=== PATIENT | male | born 2005 | race Caucasian/White ===

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

== ENCOUNTER 2025-01-24 05:00 | Outpatient (RCR) | payer MEDICAID, SELFPAY | END 2025-02-22 23:59 | disposition home or self-care (01) | LOC: GPT 05:00 | PROVIDERS: Visit Provider Nurse Practitioner | DX: S06.30AD Unspecified focal traumatic brain injury with loss of consciousness status unknown, subsequent encounter (principal); X58.XXXD Exposure to other specified factors, subsequent encounter | CPT/HCPCS: 97110; 97112; 97116; 97530 ==

== ENCOUNTER 2025-01-24 05:00 | Outpatient (RCR) | payer MEDICAID, SELFPAY | END 2025-02-22 23:59 | disposition home or self-care (01) | LOC: GST 05:00 | PROVIDERS: Visit Provider Family Medicine | DX: S06.30AS Unspecified focal traumatic brain injury with loss of consciousness status unknown, sequela (principal); F84.0 Autistic disorder; X58.XXXS Exposure to other specified factors, sequela | CPT/HCPCS: 92507 ==

== ENCOUNTER 2025-01-24 05:00 | Outpatient (RCR) | payer MEDICAID, SELFPAY | END 2025-02-22 23:59 | disposition home or self-care (01) | LOC: GPT 05:00 | PROVIDERS: Visit Provider Podiatrist Foot & Ankle Surgery | DX: Z98.890 Other specified postprocedural states (principal) | CPT/HCPCS: 97110; 97112; 97140 ==

== ENCOUNTER 2025-01-24 07:00 | Outpatient (RCR) | payer MEDICAID, SELFPAY | END 2025-02-22 23:55 | disposition home or self-care (01) | LOC: GPT 07:00 | PROVIDERS: PCP Family Medicine; Visit Provider Family Medicine | DX: S06.30AS Unspecified focal traumatic brain injury with loss of consciousness status unknown, sequela (principal); X58.XXXS Exposure to other specified factors, sequela | CPT/HCPCS: 97110; 97112; 97530 ==

== ENCOUNTER 2025-02-23 05:00 | Outpatient (RCR) | payer MEDICAID, SELFPAY | END 2025-03-25 23:59 | disposition home or self-care (01) | LOC: GPT 05:00 | PROVIDERS: Visit Provider Nurse Practitioner | DX: S06.30AD Unspecified focal traumatic brain injury with loss of consciousness status unknown, subsequent encounter (principal); X58.XXXD Exposure to other specified factors, subsequent encounter | CPT/HCPCS: 97110; 97112; 97530 ==

== ENCOUNTER 2025-02-23 05:00 | Outpatient (RCR) | payer MEDICAID, SELFPAY | END 2025-03-25 23:59 | disposition home or self-care (01) | LOC: GST 05:00 | PROVIDERS: Visit Provider Family Medicine | DX: F84.0 Autistic disorder (principal) | CPT/HCPCS: 92507 ==

== ENCOUNTER 2025-02-23 05:00 | Outpatient (RCR) | payer MEDICAID, SELFPAY | END 2025-03-25 23:59 | disposition home or self-care (01) | LOC: GPT 05:00 | PROVIDERS: Visit Provider Podiatrist Foot & Ankle Surgery | DX: Z98.890 Other specified postprocedural states (principal) | CPT/HCPCS: 97110; 97140 ==

== ENCOUNTER 2025-02-23 06:30 | Outpatient (RCR) | payer MEDICAID, SELFPAY | END 2025-03-25 23:55 | disposition home or self-care (01) | LOC: GPT 06:30 | PROVIDERS: PCP Family Medicine; Visit Provider Family Medicine | DX: S06.30AS Unspecified focal traumatic brain injury with loss of consciousness status unknown, sequela (principal); X58.XXXS Exposure to other specified factors, sequela | CPT/HCPCS: 97110; 97112; 97530 ==

== ENCOUNTER → 2025-03-01 08:02 | Outpatient (BNVA) | payer MEDICAID, SELFPAY | PROVIDERS: Visit Provider Internal Medicine | DX: E06.3 Autoimmune thyroiditis (principal); V89.2XXA Person injured in unspecified motor-vehicle accident, traffic, initial encounter | CPT/HCPCS: 99204 ==

== ENCOUNTER → 2025-03-19 15:42 | Outpatient (BNVA) | payer MEDICAID, SELFPAY | PROVIDERS: Visit Provider Nurse Practitioner Family | DX: R10.9 Unspecified abdominal pain (principal) | CPT/HCPCS: 81000 ==

== ENCOUNTER 2025-03-26 05:00 | Outpatient (RCR) | payer MEDICAID, SELFPAY | END 2025-04-25 23:59 | disposition home or self-care (01) | LOC: GST 05:00 | PROVIDERS: PCP Family Medicine; Visit Provider Family Medicine | DX: F84.0 Autistic disorder (principal) | CPT/HCPCS: 92507 ==

== ENCOUNTER 2025-03-26 06:30 | Outpatient (RCR) | payer MEDICAID, SELFPAY | END 2025-04-25 23:55 | disposition home or self-care (01) | LOC: GPT 06:30 | PROVIDERS: PCP Family Medicine; Visit Provider Family Medicine | DX: S06.30AS Unspecified focal traumatic brain injury with loss of consciousness status unknown, sequela (principal); X58.XXXS Exposure to other specified factors, sequela | CPT/HCPCS: 97110; 97112; 97530 ==

== ENCOUNTER 2025-03-26 06:30 | Outpatient (RCR) | payer MEDICAID, SELFPAY | END 2025-04-06 08:03 | disposition home or self-care (01) | LOC: GPT 06:30 | PROVIDERS: PCP Family Medicine; Visit Provider Podiatrist Foot & Ankle Surgery | DX: Z98.890 Other specified postprocedural states (principal) | CPT/HCPCS: 97110 ==

== ENCOUNTER 2025-03-26 06:30 | Outpatient (RCR) | payer MEDICAID, SELFPAY | END 2025-04-25 23:59 | disposition home or self-care (01) | LOC: GPT 06:30 | PROVIDERS: PCP Family Medicine; Visit Provider Nurse Practitioner | DX: S06.30AD Unspecified focal traumatic brain injury with loss of consciousness status unknown, subsequent encounter (principal); X58.XXXD Exposure to other specified factors, subsequent encounter | CPT/HCPCS: 97110; 97112; 97530 ==

== ENCOUNTER 2025-03-31 09:56 | Outpatient (CLI) | payer MEDICAID, SELFPAY ==
[2025-03-31 12:13] LABS: Free T4 Free Thyroxine 1.11 ng/dL (0.93-1.60); Thyroid Stimulating Hormone 1.37 uIU/mL (0.27-4.20)
== END 2025-03-31 09:57 | disposition home or self-care (01) ==
LOC: LAB 09:58
PROVIDERS: PCP Family Medicine; Visit Provider Internal Medicine
DX: E06.3 Autoimmune thyroiditis (principal)
CPT/HCPCS: 36415; 82530; 84305; 84402; 84403; 84439; 84443

== ENCOUNTER 2025-04-21 07:59 | Outpatient (CLI) | payer MEDICAID, SELFPAY ==
--- NOTE | 2025-04-21 08:06 | FL_ITS ---
WS: [id number] Exam: FL barium swallow modifd [id number] Date/Time of Exam: 04/21/2025 9:02 AM Reason For Exam: Other dysphagia Fluoroscopy time: 3min [id number] minutes # of spot films: Modified barium swallow test was performed in conjunction with the speech therapy service. The patient experienced a single episode of very slight penetration into the laryngeal inlet when ingesting thin liquid. The patient tolerated the remaining barium mixture foodstuffs without aspiration or penetration. The patient swallowed a barium tablet which readily passed into the stomach without d ifficulty. FL/FL barium swallow modifd [id number] IMPRESSION: 1. Single episode of very slight penetration when ingesting thin liquids. No as piration was identified. No other significant finding. A separate report and recommendations will follow from the speech therapy servi ce.
== END 2025-04-21 08:00 | disposition home or self-care (01) ==
LOC: RAD 08:00
PROVIDERS: PCP Family Medicine; Visit Provider Family Medicine
DX: F84.0 Autistic disorder (principal); S06.30AS Unspecified focal traumatic brain injury with loss of consciousness status unknown, sequela; X58.XXXS Exposure to other specified factors, sequela; R13.19 Other dysphagia
CPT/HCPCS: 74230; 92611

== ENCOUNTER 2025-04-26 05:00 | Outpatient (RCR) | payer MEDICAID, SELFPAY | END 2025-05-25 23:59 | disposition home or self-care (01) | LOC: GST 05:00 | PROVIDERS: PCP Family Medicine; Visit Provider Family Medicine | DX: F84.0 Autistic disorder (principal) | CPT/HCPCS: 92507 ==

== ENCOUNTER 2025-04-26 06:30 | Outpatient (RCR) | payer MEDICAID, SELFPAY | END 2025-05-25 23:59 | disposition home or self-care (01) | LOC: GPT 06:30 | PROVIDERS: PCP Family Medicine; Visit Provider Family Medicine | DX: S06.30AS Unspecified focal traumatic brain injury with loss of consciousness status unknown, sequela (principal); X58.XXXS Exposure to other specified factors, sequela | CPT/HCPCS: 97110; 97116; 97535 ==

== ENCOUNTER 2025-04-26 06:30 | Outpatient (RCR) | payer MEDICAID, SELFPAY | END 2025-05-25 23:59 | disposition home or self-care (01) | LOC: GPT 06:30 | PROVIDERS: PCP Family Medicine; Visit Provider Nurse Practitioner | DX: G81.94 Hemiplegia, unspecified affecting left nondominant side (principal); F84.0 Autistic disorder | CPT/HCPCS: 97110 ==

== ENCOUNTER → 2025-05-04 07:51 | Outpatient (BNVA) | payer MEDICAID, SELFPAY | PROVIDERS: PCP Family Medicine; Visit Provider Internal Medicine | DX: E06.3 Autoimmune thyroiditis (principal); V89.2XXA Person injured in unspecified motor-vehicle accident, traffic, initial encounter; R94.7 Abnormal results of other endocrine function studies; S06.9X9A Unspecified intracranial injury with loss of consciousness of unspecified duration, initial encounter; R79.89 Other specified abnormal findings of blood chemistry | CPT/HCPCS: 99214 ==

== ENCOUNTER 2025-06-22 07:07 | Outpatient (RCR) | payer MEDICAID, SELFPAY | END 2025-06-25 23:59 | disposition home or self-care (01) | LOC: GPT 07:07 | PROVIDERS: PCP Family Medicine; Visit Provider Family Medicine | DX: S06.30AS Unspecified focal traumatic brain injury with loss of consciousness status unknown, sequela (principal); X58.XXXS Exposure to other specified factors, sequela | CPT/HCPCS: 97112; 97164 ==

== ENCOUNTER 2025-07-21 08:42 | Outpatient (RCR) | payer MEDICAID, SELFPAY | END 2025-07-25 23:59 | disposition home or self-care (01) | LOC: GPT 08:42 | PROVIDERS: PCP Family Medicine; Visit Provider Family Medicine | DX: S06.30AS Unspecified focal traumatic brain injury with loss of consciousness status unknown, sequela (principal); X58.XXXS Exposure to other specified factors, sequela | CPT/HCPCS: 97110; 97112; 97535 ==

== ENCOUNTER → 2025-07-28 13:54 | Outpatient (BNVA) | payer MEDICAID, SELFPAY | PROVIDERS: PCP Family Medicine; Visit Provider Nurse Practitioner Family | DX: J02.9 Acute pharyngitis, unspecified (principal) | CPT/HCPCS: 87071; 87400; 87426; 87880 ==

== ENCOUNTER 2025-08-23 08:11 | Outpatient (RCR) | payer MEDICAID, SELFPAY | END 2025-08-25 23:59 | disposition home or self-care (01) | LOC: GPT 08:11 | PROVIDERS: PCP Family Medicine; Visit Provider Family Medicine | DX: S06.30AD Unspecified focal traumatic brain injury with loss of consciousness status unknown, subsequent encounter (principal); X58.XXXD Exposure to other specified factors, subsequent encounter | CPT/HCPCS: 97110; 97112; 97140; 97535 ==